=== PATIENT | female | born 1970 | race Caucasian/White ===

== ENCOUNTER → 2020-09-11 | Outpatient (CLI) | payer OTHER ==
[~2020-09-11] MED LIST: OMEPRAZOLE40 MG PO
== END ==
LOC: EXRD 14:56
DX: R05 Cough (principal); R91.8 Other nonspecific abnormal finding of lung field
CPT/HCPCS: 71046

== ENCOUNTER → 2020-10-05 | Outpatient (CLI) | payer OTHER | LOC: KOH-I 09-19 15:30 | DX: R91.8 Other nonspecific abnormal finding of lung field (principal); M25.512 Pain in left shoulder; F17.210 Nicotine dependence, cigarettes, uncomplicated | CPT/HCPCS: 71250 ==

== ENCOUNTER → 2021-01-18 | Outpatient (CLI) | payer OTHER | LOC: KOH-I 10:23 | DX: M25.511 Pain in right shoulder (principal); K80.20 Calculus of gallbladder without cholecystitis without obstruction | CPT/HCPCS: 76705 ==